=== PATIENT | male | born 1975 | race Caucasian/White ===

== ENCOUNTER 2018-07-10 17:16 | Inpatient (IN) ==
--- NOTE | 2018-07-10 19:23 | Emergency Department Note ---
Entered by Alberto Leroy acting as a scribe for Pancho Howard DO History of Present Illness General Chief complaint: Seizure Stated complaint: SEIZURES, UNSTABLE ON HIS FEET, COORDINATION PROB Time Seen by Provider: 07/10/18 18:10 Source: family (sister) History of Present Illness Onset (ago): week(s) 1 Location: head (global) Pain Consistency: + intermittent Quality: + other (seizures 2-3 times daily) Associated symptoms: + other (falls; difficulty walking) Treatments prior to arrival: other (recent Keppra dosage increase) The patient is a 43 year old male who presents to the Emergency Room with complaints of intermittent seizures for the past week. The patient�s sister reports that the patient was evaluated in the ER three days ago for his symptoms. She reports that the patient�s Keppra dosage was recently increased. She notes that the patient�s seizures occur 2-3 times daily. She reports that they occur immediately with little warning, and the patient often falls, noting that four days ago the patient fell onto his face. She states that the patient has difficulty walking, even long after his seizures have resolved. She states that the patient�s nurse practitioner home assessments called his neurologist Dr. Taveras today, who referred him to the ER for possible admission, noting that either the patient�s Keppra levels are abnormal or the Keppra is not working. She notes that the patient is scheduled for an appointment with Dr. Taveras tomorrow. She states that the patient is also on Lamotrigine. Home Medications Home Medications Medication Instructions Recorded Confirmed Type benzoyl peroxide [Acne Medication] 1 applic TOPICAL BID PRN 07/07/18 07/10/18 History benztropine 1 mg PO QAM 07/07/18 07/10/18 History benztropine 2 mg PO HS 07/07/18 07/10/18 History clindamycin phosphate 1 applic TOPICAL BID PRN 07/07/18 07/10/18 History doxycycline monohydrate 100 mg PO BID 07/07/18 07/10/18 History ketoconazole 1 applic/day TOPICAL DAILY PRN 07/07/18 07/10/18 History lamotrigine 50 mg PO BID 07/07/18 07/10/18 History lamotrigine 200 mg PO BID 07/07/18 07/10/18 History levetiracetam 1,000 mg PO BID 07/07/18 07/10/18 History levetiracetam [Keppra] 500 mg PO BID #30 tab 07/07/18 07/10/18 Rx levothyroxine 50 mcg PO DAILY 07/07/18 07/10/18 History lorazepam 0.5 mg PO BID 07/07/18 07/10/18 History risperidone 3 mg PO BID 07/07/18 07/10/18 History triamcinolone acetonide 1 applic TOPICAL BID 07/07/18 07/10/18 History zonisamide 200 mg PO BID 07/07/18 07/10/18 History acetaminophen [Tylenol Arthritis 650 mg PO Q6 PRN 07/10/18 07/10/18 History Pain] Allergies Allergy/AdvReac Type Severity Reaction Status Date / Time carbamazepine Allergy Unknown Verified 07/10/18 19:23 Past Med/Surg History Medical History Seizures (Chronic) Family History Other No significant family history Social History Feels Safe at Home: Yes Smoking Status: Never smoker Preferred Language: Slovenian Review of Systems See HPI for pertinent positives & negatives. and A total of 10 systems reviewed and were otherwise negative Physical Exam Vital Signs Vital Signs - 24 hr 07/10/18 17:22 07/10/18 18:03 07/10/18 18:05 Temperature 37 C Temperature Source Oral Sepsis Recent Fever Within 48 Hours No Sepsis New/Unexplained Change in Mental Status No Sepsis Action Taken by Nursing No Action Required Pulse Rate 86 Pulse Rate [Left Finger] 85 Respiratory Rate 16 20 Respiratory Effort / Characteristics Non-Labored Spontaneous Respiratory Depth Normal Respiratory Pattern Regular Blood Pressure 112/73 Blood Pressure [Left Arm] 119/73 Blood Pressure Mean 86 Blood Pressure Mean [Left Arm] 88 Pulse Oximetry 99 98 97 Oxygen Delivery Method Room Air Room Air Room Air 07/10/18 19:00 07/10/18 20:30 Temperature Temperature Source Sepsis Recent Fever Within 48 Hours Sepsis New/Unexplained Change in Mental Status Sepsis Action Taken by Nursing Pulse Rate Pulse Rate [Left Finger] 81 89 Respiratory Rate 18 23 Respiratory Effort / Characteristics Respiratory Depth Respiratory Pattern Blood Pressure Blood Pressure [Left Arm] 111/81 122/76 Blood Pressure Mean Blood Pressure Mean [Left Arm] 91 91 Pulse Oximetry 97 99 Oxygen Delivery Method Room Air Room Air CONSTITUTIONAL/VITAL SIGNS: Reviewed / noted above. GENERAL: Non-toxic in appearance. INTEGUMENTARY: Warm, dry, and [place]. HEAD: Normocephalic. EYES: without scleral icterus or trauma. ENT/OROPHARYNX: clear and moist. LYMPHADENOPATHY/NECK: Is supple without lymphadenopathy or meningismus. RESPIRATORY: Lungs clear and equal. CARDIOVASCULAR: Regular rate and rhythm. GI/ABDOMEN: Soft and nontender. No organomegaly or pulsatile mass. No rebound or guarding. Normal bowel sounds. EXTREMITIES: Warm and well perfused. BACK: No CVA tenderness. NEUROLOGICAL: Intact without focal deficits. PSYCHIATRIC: normal affect. MUSCULOSKELETAL: Normally developed with good muscle tone. Course 1815: Past medical records reviewed. The patient was evaluated in room B2, and a complete history and physical examination were performed. 1899: I consulted Dr. Apodaca � [facility] Hospitalist. He states that he will notify Dr. Nava of the patient�s case, who will then reevaluate the patient for hospitalization. Consultations Consultation #1: I consulted Dr. Apodaca � [facility] Hospitalist. He states that he will notify Dr. Nava of the patient�s case, who will then reevaluate the patient for hospitalization. Time: 19:00 Medical Decision Making Differential Diagnosis Differential diagnosis: Etiologies such as infection, hypoglycemia, electrolyte abnormalities, cardiac sources, intracerebral event, trauma, toxicologic, neurologic, as well as others were entertained. Medical Records Attestation: I reviewed the patient's medical records. Home Medications Current Medication List: was personally reviewed by me Laboratory Data Result diagrams: 07/10/18 19:50 Lab Results 07/10/18 Range/Units 19:50 WBC 4.15 L (4.8-10.8) K/uL RBC 4.03 L (4.7-6.1) M/uL Hgb 12.7 L (14.0-18.0) g/dL Hct 38.8 L (42-52) % MCV 96.3 (80-100) fL MCH 31.5 (25-34) pg MCHC 32.7 (32-36) g/dL RDW Std Deviation 51.8 H (36.4-46.3) fL RDW Coeff of Vero 14.6 H (11.5-14.5) % Plt Count 115 L (130-400) K/uL MPV 12.2 H (7.4-10.4) fL Immature Gran % (Auto) 0.0 % Neut % (Auto) 67.5 % Lymph % (Auto) 24.6 % Holt % (Auto) 6.0 % Eos % (Auto) 1.2 % Baso % (Auto) 0.7 % Immature Gran # (Auto) 0.00 (0.00-0.02) K/uL Neut # (Auto) 2.80 (1.4-6.5) K/uL Lymph # (Auto) 1.02 L (1.2-3.4) K/uL Holt # (Auto) 0.25 (0.11-0.59) K/uL Eos # (Auto) 0.05 (0-0.5) K/uL Baso # (Auto) 0.03 (0-0.2) K/uL Platelet Estimate Decreased (Normal) Blood Pressure Blood Pressure Findings: Normal blood pressure Blood Pressure Disposition: did not require urgent referral MDM Narrative This is a 43-year-old male who presents to the ED with a chief complaint of recurrent seizures. The patient was seen on 07/07/18 for the same symptoms. At that time the patient had blood work as well as a CT scan of the brain. The physician at that time spoke with Dr. Taveras, the patient's neurologist and the patient's Keppra was increased to 1500 mg twice a day. The patient has had roughly 2 focal type seizures per day since discharge 3 days ago. The patient, according to the sister occasionally twitches his head and then zones out and sometimes falls. The patient is currently awake, alert and oriented. He is at his baseline. The patient's sister stated that when the nursing facility spoke with Dr. Taveras, the patient was advised to come to the emergency department to be admitted for recurrent/intractable seizures. I spoke with Dr. Eduardo about the patient. He will be seen for observation . Keppra & Lamictal levels are pending from the prior visit. Impression & Plan Seizures Discharge Plan Visit Data Chief Complaint: Seizure Stated Complaint: SEIZURES, UNSTABLE ON HIS FEET, COORDINATION PROB ED Provider: Pancho Howard Discharge Problem: Seizures Patient Disposition: Being Evaluated by Hospitalist The scribe's documentation has been prepared under my direction and personally reviewed by me in its entirety. I confirm that the note above accurately reflects all work, treatment, procedures, and medical decision making performed by me.
[2018-07-10 20:15] LABS: Hematocrit (blood only) 38.8 % (42-52); Hemoglobin 12.7 g/dL (14.0-18.0); Mean Corpuscular Hgb Conc 32.7 g/dL (32-36); Mean Corpuscular Volume 96.3 fL (80-100); Mean Platelet Volume 12.2 fL (7.4-10.4); Platelet Count 115 K/uL (130-400); RDW Coefficient of Variation 14.6 % (11.5-14.5); RDW Standard Deviation 51.8 fL (36.4-46.3); Red Blood Count 4.03 M/uL (4.7-6.1); White Blood Count 4.15 K/uL (4.8-10.8)
[2018-07-10 20:40] LABS: Basophils # (auto) 0.03 K/uL (0-0.2); Basophils % (auto) 0.7 %; Eosinophils # (auto) 0.05 K/uL (0-0.5); Eosinophils % (auto) 1.2 %; Lymphocytes # (auto) 1.02 K/uL (1.2-3.4); Lymphocytes % (auto) 24.6 %; Monocytes # (auto) 0.25 K/uL (0.11-0.59); Neutrophils % (auto) 67.5 %; Platelet Estimate Decreased (Normal)
--- NOTE | 2018-07-10 20:48 | History & Physical Report ---
Date of Service July 10, 2018 Assessment & Plan (1) Seizure disorder: Seizure disorder with recurrent seizures/anxiety and depression-- Admits to medical telemetry bed. Seizure precautions. Continue current dosings of benztropine, lamotrigine, levetiracetam, lorazepam, risperidone and zonisamide. Order an EEG. CT of head negative on 07/07. Unable to perform MRI due to presence of pacer/AICD. Consult neurology Dr. 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 On no rate controlling medications at this time. Present on Admission?: Yes (5) Acne: Continue benzoyl peroxide topically as needed, clindamycin phosphate topically as needed topically, ketoconazole topically as needed and doxycycline 100 milligrams p.o. twice daily. Present on Admission?: Yes (6) Hypothyroidism (acquired): Continue levothyroxine sodium 50 mcg p.o. daily Present on Admission?: Yes (7) Anxiety: As above. Present on Admission?: Yes (8) AICD (automatic cardioverter/defibrillator) present: As above Present on Admission?: Yes (9) Pacemaker: As above Present on Admission?: Yes History of Present Illness Chief Complaint: The patient is referred to the emergency department by his neurologist Dr. Kelvin Taveras for recurrent seizures Primary Care Provider: Tere Hyatt The patient is a 43-year-old male who presented to the emergency department on July 07 with increased frequency of seizures. His neurologist Dr. Taveras was called by Dr. Doll from the ED, change in medications were made, and patient was discharged. His sister who is with him benjamin, reports that he has had persistent seizures since that time, they called Dr. Taveras's office today , and Dr. Taveras advised that the patient comes emergency department to be admitted. The patient is reportedly taking medications as directed. He has not had any recent travels or sick exposures. He has no other complaints. Allergies Allergy/AdvReac Type Severity Reaction Status Date / Time carbamazepine Allergy Unknown Verified 07/10/18 19:23 Home Medications Home Medications Medication Instructions Recorded Confirmed Type benzoyl peroxide [Acne Medication] 1 applic TOPICAL BID PRN 07/07/18 07/10/18 History benztropine 1 mg PO QAM 07/07/18 07/10/18 History benztropine 2 mg PO HS 07/07/18 07/10/18 History clindamycin phosphate 1 applic TOPICAL BID PRN 07/07/18 07/10/18 History doxycycline monohydrate 100 mg PO BID 07/07/18 07/10/18 History ketoconazole 1 applic/day TOPICAL DAILY PRN 07/07/18 07/10/18 History lamotrigine 50 mg PO BID 07/07/18 07/10/18 History lamotrigine 200 mg PO BID 07/07/18 07/10/18 History levetiracetam 1,000 mg PO BID 07/07/18 07/10/18 History levetiracetam [Keppra] 500 mg PO BID #30 tab 07/07/18 07/10/18 Rx levothyroxine 50 mcg PO DAILY 07/07/18 07/10/18 History lorazepam 0.5 mg PO BID 07/07/18 07/10/18 History risperidone 3 mg PO BID 07/07/18 07/10/18 History triamcinolone acetonide 1 applic TOPICAL BID 07/07/18 07/10/18 History zonisamide 200 mg PO BID 07/07/18 07/10/18 History acetaminophen [Tylenol Arthritis 650 mg PO Q6 PRN 07/10/18 07/10/18 History Pain] Past Med/Surg History Medical History Seizures (Chronic) Family History Other No significant family history Social History Feels Safe at Home: Yes Smoking Status: Never smoker Preferred Language: [place]auan Review of Systems The patient denies chest pain, palpitations, shortness of breath, dyspnea on exertion, cough, lower extremity swelling, sore throat, fevers, chills, sweats, weight change, fatigue, nausea, vomiting, diarrhea , constipation, abdominal pain, pelvic pain, blood in urine or stool, dysuria, urinary frequency or urgency, lightheadedness , dizziness, headache, loss of consciousness, imbalance, focal or generalized weakness, numbness or tingling in arms or legs, generalized arthralgias or myalgias, back or neck pain, or night sweats. The review of systems is otherwise negative other than for that already noted above, and at least 10 systems have been reviewed. Physical Exam 2 Vital Signs (Past 24 Hours): Last Vital Signs Temp 37 C 07/10/18 17:22 Pulse 81 07/10/18 19:00 Resp 18 07/10/18 19:00 BP 111/81 07/10/18 19:00 Pulse Ox 97 07/10/18 19:00 Physical Exam: The patient is awake, alert and oriented �3, well developed and well nourished, normocephalic and atraumatic, lying in bed and in no acute distress. HEENT--PERRL, EOMI, mucous membranes and oropharynx normal. Neck--supple. No JVD. No bruits. Thyroid normal, trachea midline, no adenopathy. Heart--normal S1 and S2. No murmurs, rubs or gallops. Lungs--clear bilaterally, no respiratory distress, no accessory muscle use. Abdomen--normal bowel sounds and soft. Nontender. Nondistended, no hernias or masses, no organomegaly. Extremities--no cyanosis or clubbing. No edema. There are good distal pulses b/ l. Dermatologic--numerous linear surface abrasions from scratching on arms, legs and face Neurologic--cranial nerves II through XII grossly intact. Rheumatologic--normal range of motion. Psychiatric--normal affect. Results & Data Laboratory Results Laboratory Results WBC 4.15 K/uL (4.8-10.8) L 07/10/18 19:50 RBC 4.03 M/uL (4.7-6.1) L 07/10/18 19:50 Hgb 12.7 g/dL (14.0-18.0) L 07/10/18 19:50 Hct 38.8 % (42-52) L 07/10/18 19:50 MCV 96.3 fL (80-100) 07/10/18 19:50 MCH 31.5 pg (25-34) 07/10/18 19:50 MCHC 32.7 g/dL (32-36) 07/10/18 19:50 RDW Std Deviation 51.8 fL (36.4-46.3) H 07/10/18 19:50 RDW Coeff of Vero 14.6 % (11.5-14.5) H 07/10/18 19:50 Plt Count 115 K/uL (130-400) L 07/10/18 19:50 MPV 12.2 fL (7.4-10.4) H 07/10/18 19:50 Medications Administered Home Medications Medication Instructions Recorded Confirmed benzoyl peroxide [Acne Medication] 1 applic TOPICAL BID PRN 07/07/18 07/10/18 benztropine 1 mg PO QAM 07/07/18 07/10/18 benztropine 2 mg PO HS 07/07/18 07/10/18 clindamycin phosphate 1 applic TOPICAL BID PRN 07/07/18 07/10/18 doxycycline monohydrate 100 mg PO BID 07/07/18 07/10/18 ketoconazole 1 applic/day TOPICAL DAILY PRN 07/07/18 07/10/18 lamotrigine 50 mg PO BID 07/07/18 07/10/18 lamotrigine 200 mg PO BID 07/07/18 07/10/18 levetiracetam 1,000 mg PO BID 07/07/18 07/10/18 levothyroxine 50 mcg PO DAILY 07/07/18 07/10/18 lorazepam 0.5 mg PO BID 07/07/18 07/10/18 risperidone 3 mg PO BID 07/07/18 07/10/18 triamcinolone acetonide 1 applic TOPICAL BID 07/07/18 07/10/18 zonisamide 200 mg PO BID 07/07/18 07/10/18 acetaminophen [Tylenol Arthritis 650 mg PO Q6 PRN 07/10/18 07/10/18 Pain] Previous Rx's Medication Instructions Recorded levetiracetam [Keppra] 500 mg PO BID #30 tab 07/07/18 Code Status & VTE Plan Code Status Full code VTE Prophylaxis Plan VTE Prophylaxis will be ordered: Yes _ (1) CHI (closed head injury) Encounter type: initial encounter Qualified Code(s): S09.90XA - Unspecified injury of head, initial encounter
[2018-07-10] MEDS ORDERED: NON-FORMULARY MEDICATION (Acetaminophen [Tylenol Arthritis Pain] 650 MG) PO PRN (21:39)
[2018-07-10] MEDS ORDERED: ALUMINUM/MAGNESIUM SUSP 30 ML UDC PO PRN (21:39)
[2018-07-10] MEDS ORDERED: ACETAMINOPHEN 325 MG TAB PO PRN (21:39)
[2018-07-10] MEDS ORDERED: levETIRAcetam 500 MG TAB PO SCH (21:39)
[2018-07-10] MEDS ORDERED: MAGNESIUM HYDROXIDE SUSP 30 ML UDC PO PRN (21:39)
[2018-07-10] MEDS ORDERED: ONDANSETRON INJ 2 MG/ML 2 ML VIAL IV PRN (21:39)
[2018-07-10] MEDS: LORazepam 0.5 MG TAB PO SCH (22:31)
[2018-07-10] MEDS: lamoTRIgine 25 MG TAB PO SCH (22:32)
[2018-07-10] MEDS: lamoTRIgine 100 MG TAB PO SCH (22:35)
[2018-07-10] MEDS: BENZTROPINE MESYLATE 1 MG TAB PO SCH (22:36)
[2018-07-10] MEDS: DOXYCYCLINE HYCLATE 100 MG CAP PO SCH (22:36)
[2018-07-10] MEDS: risperiDONE 3 MG TABLET PO SCH (22:36)
[2018-07-10] MEDS: levETIRAcetam 500 MG TAB PO SCH ×2 (22:37)
[2018-07-10] MEDS: TRIAMCINOLONE ACET 0.1% CR 15 GM TUBE TOP SCH (22:48)
[2018-07-11] MEDS: LEVOTHYROXINE SODIUM 50 MCG TABLET PO SCH (06:09)
--- NOTE | 2018-07-11 07:48 | Hospitalist Progress Note ---
Date of Service July 11, 2018 Assessment & Plan (1) Seizure disorder: Seizure disorder with recurrent seizures/anxiety and depression-- Continue current dosings of benztropine, lamotrigine, levetiracetam, lorazepam, risperidone and zonisamide. Pending results of EEG and Dr. Kim to weigh in on alterations of the anti- epileptic medication. CT of head negative on 07/07. Unable to perform MRI due to presence of pacer/AICD. Given the patient's cardiac history he will be continued to be monitored and will interrogate his device to look for alternative causes of his lapses of consciousness (2) Recurrent seizures: As above (3) CHI (closed head injury): Noted in history, association with seizures (4) Tetralogy of Fallot: Tetralogy of Fallot/surgery as an /pacemaker and AICD present with paced rhythm-- Admit to monitored bed to monitor for arrhythmia as potential contributing factor to seizure activity. On no rate controlling medications at this time. (5) Acne: Continue benzoyl peroxide topically as needed, clindamycin phosphate topically as needed topically, ketoconazole topically as needed and doxycycline 100 milligrams p.o. twice daily. (6) Hypothyroidism (acquired): Continue levothyroxine sodium 50 mcg p.o. daily (7) Anxiety: As above. (8) AICD (automatic cardioverter/defibrillator) present: As above (9) Pacemaker: As above Subjective Patient is fairly quiet he can offer some insight his sisters at the bedside which provides much more inside. The patient had increased falls at the place where he lives sister is concerned he is exceeding her ability to care for him. He does have some areas of unresponsiveness and is unclear whether they are seizures or not. The patient's sister believes he went through a similar episode a few months ago with increased his Keppra and he had a period of time where he was doing better. Patient is going to be seen by neurology currently he is on the heart monitor he does have a AICD implant and has had no recent arrhythmias Review of Systems Unobtainable due to cognitive status Physical Exam 2 Vital Signs (Past 24 Hours): Last Vital Signs Temp 36.5 C 07/11/18 07:42 Pulse 94 H 07/11/18 07:42 Resp 18 07/11/18 07:42 BP 108/71 07/11/18 07:42 Pulse Ox 97 07/11/18 07:42 The patient appeared thin and chronically ill Vital signs as documented. Head exam is unremarkable. His ecchymosis around his eyes Neck is without jugular venous distension, thyromegaly, or lymphademopathy Lungs are clear to auscultation and percussion. Cardiac exam reveals Rhythm is regular. First and second heart sounds normal. Abdominal exam reveals normal bowel sounds, no masses, no organomegaly Extremities are nonedematous and both pedal pulses are present Neurologic exam is A&Ox2, no focal deficits, strength is equal bilateral but globally diminished Psychologically seems to have issues with mental processing and speech Skin is warm Dry without bruises or lesions _ (1) CHI (closed head injury) Encounter type: initial encounter Qualified Code(s): S09.90XA - Unspecified injury of head, initial encounter
[2018-07-11] MEDS: LORazepam 0.5 MG TAB PO SCH ×2 (08:06→20:26)
[2018-07-11] MEDS: DOXYCYCLINE HYCLATE 100 MG CAP PO SCH ×2 (08:08→19:51)
[2018-07-11] MEDS: BENZTROPINE MESYLATE 1 MG TAB PO SCH ×2 (08:09→19:51)
[2018-07-11] MEDS: risperiDONE 3 MG TABLET PO SCH ×2 (08:09→19:52)
[2018-07-11] MEDS: lamoTRIgine 100 MG TAB PO SCH ×2 (08:10→19:52)
[2018-07-11] MEDS: levETIRAcetam 500 MG TAB PO SCH ×3 (08:11→19:52)
[2018-07-11] MEDS: lamoTRIgine 25 MG TAB PO SCH ×2 (08:11→20:26)
[2018-07-11] MEDS: TRIAMCINOLONE ACET 0.1% CR 15 GM TUBE TOP SCH ×2 (10:05→20:29)
--- NOTE | 2018-07-11 10:54 | Neurology Consultation ---
Date of Consultation July 11, 2018 Assessment & Plan (1) Seizures: This is a 43-year-old male with intellectual disability and epilepsy. Seizure description is likely of focal onset seizures with secondary generalization and impaired mentation. Description of head shaking to the left sounds consistent with epileptic seizures. longterm and sister also calling spells of drop attacks and falls seizures but have not clearly been established as epileptic seizures. Recommendations: I have ordered an EEG for further evaluation Patient's sister reports that he is not safe in his detention due to frequent falls and ambulatory dysfunction. She would like him evaluated for intermediate placement until his seizures are better controlled. It appears that his ambulatory dysfunction and poor balance have been an ongoing problem and do tend to fluctuate. Recommend physical therapy and occupational therapy for ambulatory dysfunction and for evaluation of rehab placement versus intermediate placement Recommend checking orthostatic blood pressure due to reports of falling and possible syncope. If his cardiac pacer has not been interrogated, this should be done to rule out arrhythmias causing syncope and falls. I have sent off for ammonia level and UA to look for other secondary causes for ambulatory dysfunction I have sent off for Lamictal and Zonegran levels for future medication management and planning. In the future may be able to increase Lamictal it is it is not clear that the patient had true side effects to medication in the past. Patient does seem to have side effects with higher dose of Lamictal, or if ambulatory dysfunction continues to be a problem, could consider changing Lamictal to extended release to reduce potential dizziness side effects. Please call/page me if there is any questions or concerns. Do not think the patient necessarily needs to stay in the acute hospital setting for management of his epilepsy and seizure. Patient can follow-up in neurology clinic within the next month. History of Present Illness Reason for Consultation: Consult for recurrent breakthrough seizures Attending Physician: Vahid New MD History of Present Illness This is a 43-year-old male who presents with recurrent breakthrough seizures. Has been occurring for the last month. longterm documenting 2-3 seizures every day. Sister reports that when this happened previously the end of summer , increasing Keppra seemed to stop it. She reports that it seems like his balance and gait gets worse after seizures and does not feel that it is related to medication. She denies any side effects to going up on Keppra to 1500 mg twice a day. Patient's sister did see what sounded like a convincing seizure Monday in which his head started shaking to the left. It is unclear to me whether all his documented seizures are actually epileptic seizures as a lot of them appear to be drug attacks or unwitnessed falls. There was concerns when he was evaluated in clinic over the summer that his drop attacks could be orthostatic or cardiac. Does not sound like this was ever truly evaluated. At that time in the summer that he was noted to have some low blood pressures. Extensively reviewed patient's outpatient chart. Patient has been followed by Dr. Taveras for approximately 10 years. Previously patient has been tried on Tegretol, Lamictal, Keppra, and most recently zonogram. It is unclear what medication may have been more helpful. In the past the patient has been on a maximum dose of Lamictal 300 mg twice a day and up to 450 mg twice a day when also on Tegretol. It appears that the patient's Lamictal was decreased in 2012 from 300 mg twice a day to 200 mg twice a day for concerns of possible side effects although this appeared to be related to his balance and gait dysfunction which seems to be an ongoing fluctuating situation. So it is unclear whether the patient had true side effects to Lamictal or not. Max dose of Keppra has been 1500 mg twice a day. There was an attempt to decrease and wean Keppra back in 2012 but it appears that he had breakthrough seizures and so Keppra has been increased again. Zonisamide has been the most recent addition to the patient's antiepileptic medications and it is unclear how helpful this medication has been although there were many notes that the patient appeared to be stable on triple therapy Keppra, Lamictal, and zonisamide. Overall it is unclear why the patient has had increased seizures recently, and it is also unclear whether all of his reported seizures are epileptic or not. Some of the spell descriptions of his face and drooping with slurred speech and sudden falls or drop attacks do not seem to be clearly epileptic at this time or have been established is epileptic in the past. Labs this admission were reviewed. Unremarkable CBC, complete metabolic panel, and TSH. Lamictal level in April was 11.2 and zonisamide level in February was 43. CT of the head reported images were reviewed by myself and unremarkable. Allergies Allergy/AdvReac Type Severity Reaction Status Date / Time carbamazepine Allergy Unknown Verified 07/10/18 19:23 Home Medications Home Medications Medication Instructions Recorded Confirmed Type benzoyl peroxide [Acne Medication] 1 applic TOPICAL BID PRN 07/07/18 07/10/18 History benztropine 1 mg PO QAM 07/07/18 07/10/18 History benztropine 2 mg PO HS 07/07/18 07/10/18 History clindamycin phosphate 1 applic TOPICAL BID PRN 07/07/18 07/10/18 History doxycycline monohydrate 100 mg PO BID 07/07/18 07/10/18 History ketoconazole 1 applic/day TOPICAL DAILY PRN 07/07/18 07/10/18 History lamotrigine 50 mg PO BID 07/07/18 07/10/18 History lamotrigine 200 mg PO BID 07/07/18 07/10/18 History levetiracetam 1,000 mg PO BID 07/07/18 07/10/18 History levetiracetam [Keppra] 500 mg PO BID #30 tab 07/07/18 07/10/18 Rx levothyroxine 50 mcg PO DAILY 07/07/18 07/10/18 History lorazepam 0.5 mg PO BID 07/07/18 07/10/18 History risperidone 3 mg PO BID 07/07/18 07/10/18 History triamcinolone acetonide 1 applic TOPICAL BID 07/07/18 07/10/18 History zonisamide 200 mg PO BID 07/07/18 07/10/18 History acetaminophen [Tylenol Arthritis 650 mg PO Q6 PRN 07/10/18 07/10/18 History Pain] Patient History Medical History Seizures (Chronic) Family History Other No significant family history Social History Current Living Situation: Other Current Living Situation Comment: Lives in detention. [facility]. 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 Bruising on his face and head. Heart: Regular rate and rhythm Extremities: No gross deformities or rashes noted Neurological examination: Mental status: Patient is a alert and oriented to person. Cooperative with the examination but often does not understand how to follow commands correctly. Does have intellectual disability and cognitive deficits. Most of the history is taken from his sister. Patient is able to give his own review of systems. Poor fund of knowledge. Attention and concentration is good. Speech is fluent with some dysarthria Cranial nerves: Visual núñez intact to confrontation. Funduscopic examination was difficult to visualize. Pupils equally round and reactive to light. Extraocular muscles intact without nystagmus. No facial asymmetry noted. Facial sensation intact. Tongue midline. Good palatal elevation. Good shoulder shrug bilaterally. Hearing grossly intact voice. Strength: 5/5 both proximal and distal in all extremities .Tone is normal. Some bradykinesia Sensation: Grossly intact to light touch in all extremities Deep tendon reflexes: +2 in bilateral biceps and patellar. Toes are downgoing to plantar stimulation bilaterally Coordination: Patient has some dysmetria with finger to nose Station within the bed is normal.
--- NOTE | 2018-07-11 14:25 | Procedure Note ---
EEG Procedure Note Date of Service July 11, 2018 Start / End Times Start Time: 10:56 AM End Time: 11:15 AM Referring Physician Sherly Kim History This is a 43-year-old male with known epilepsy and reported multiple breakthrough seizures that may or may not be epileptic. EEG for further evaluation of epilepsy. Home Medication List Home Medications Medication Instructions Recorded Confirmed Type benzoyl peroxide [Acne Medication] 1 applic TOPICAL BID PRN 07/07/18 07/10/18 History benztropine 1 mg PO QAM 07/07/18 07/10/18 History benztropine 2 mg PO HS 07/07/18 07/10/18 History clindamycin phosphate 1 applic TOPICAL BID PRN 07/07/18 07/10/18 History doxycycline monohydrate 100 mg PO BID 07/07/18 07/10/18 History ketoconazole 1 applic/day TOPICAL DAILY PRN 07/07/18 07/10/18 History lamotrigine 50 mg PO BID 07/07/18 07/10/18 History lamotrigine 200 mg PO BID 07/07/18 07/10/18 History levetiracetam 1,000 mg PO BID 07/07/18 07/10/18 History levetiracetam [Keppra] 500 mg PO BID #30 tab 07/07/18 07/10/18 Rx levothyroxine 50 mcg PO DAILY 07/07/18 07/10/18 History lorazepam 0.5 mg PO BID 07/07/18 07/10/18 History risperidone 3 mg PO BID 07/07/18 07/10/18 History triamcinolone acetonide 1 applic TOPICAL BID 07/07/18 07/10/18 History zonisamide 200 mg PO BID 07/07/18 07/10/18 History acetaminophen [Tylenol Arthritis 650 mg PO Q6 PRN 07/10/18 07/10/18 History Pain] Inpatient Medication List Benztropine Mesylate (Cogentin) 1 mg PO QAM [facility] Stop: 08/10/18 08:59 Last Admin: 07/11/18 08:09 Dose: 1 mg Benztropine Mesylate (Cogentin) 2 mg PO HS [facility] Stop: 08/09/18 21:38 Last Admin: 07/10/18 22:36 Dose: 2 mg Doxycycline Hyclate (Vibramycin) 100 mg PO BID [facility] Stop: 07/20/18 21:38 Last Admin: 07/11/18 08:08 Dose: 100 mg Admin: 07/10/18 22:36 Dose: 100 mg Lamotrigine (Lamictal) 50 mg PO BID [facility] Stop: 08/09/18 21:38 Last Admin: 07/11/18 08:11 Dose: 50 mg Admin: 07/10/18 22:32 Dose: 50 mg Lamotrigine (Lamictal) 200 mg PO BID [facility] Stop: 08/09/18 21:38 Last Admin: 07/11/18 08:10 Dose: 200 mg Admin: 07/10/18 22:35 Dose: 200 mg Levothyroxine Sodium (Synthroid) 50 mcg PO DAILYBB [facility] Stop: 08/10/18 06:29 Last Admin: 07/11/18 06:09 Dose: 50 mcg Lorazepam (Ativan) 0.5 mg PO BID [facility] Stop: 08/09/18 21:38 Last Admin: 07/11/18 08:06 Dose: 0.5 mg Admin: 07/10/18 22:31 Dose: 0.5 mg Miscellaneous (Order Awaiting Action) 1 ea N/A QS [facility] Stop: 08/10/18 00:00 Last Admin: 07/11/18 09:35 Dose: Not Given Admin: 07/10/18 23:40 Dose: Not Given Miscellaneous (Order Awaiting Action) 1 ea N/A QS [facility] Stop: 08/10/18 00:00 Last Admin: 07/11/18 09:35 Dose: Not Given Admin: 07/10/18 23:40 Dose: Not Given Miscellaneous (Order Awaiting Action) 1 ea N/A QS [facility] Stop: 08/10/18 00:00 Last Admin: 07/11/18 09:35 Dose: Not Given Admin: 07/10/18 23:40 Dose: Not Given Risperidone (Risperdal) 3 mg PO BID [facility] Stop: 08/09/18 21:38 Last Admin: 07/11/18 08:09 Dose: 3 mg Admin: 07/10/18 22:36 Dose: 3 mg Triamcinolone Acetonide (Kenalog 0.1%) 1 appln TOP BID [facility] Stop: 08/09/18 21:38 Last Admin: 07/11/18 10:05 Dose: 1 appln Admin: 07/10/18 22:48 Dose: Not Given Discontinued Medications Levetiracetam (Keppra) 1,000 mg PO BID [facility] Stop: 08/09/18 21:38 Last Admin: 07/11/18 08:11 Dose: 1,000 mg Admin: 07/10/18 22:37 Dose: 1,000 mg Levetiracetam (Keppra) 500 mg PO BID [facility] Stop: 08/09/18 21:38 Last Admin: 07/11/18 08:12 Dose: 500 mg Admin: 07/10/18 22:37 Dose: 500 mg Miscellaneous (Order Awaiting Action) 1 ea N/A QS [facility] Stop: 08/10/18 00:00 Last Admin: 07/11/18 09:36 Dose: Not Given Admin: 07/10/18 23:41 Dose: Not Given Description This is a 21 electrode EEG with a single channel dedicated to limited EKG. The electrodes were placed in accordance with the International 10-20 system. At the start of the recording the patient was in an awake state. Background was poorly organized with a poorly formed anterior posterior gradient. Background was composed of predominantly 6-7 Hz theta frequencies with intermixed alpha and beta frequencies. There was intermittent mild slowing over the right hemisphere. Hyperventilation was not done. Intermittent photic stimulation at various frequencies produced no abnormalities. Drowsiness was indicated by slowing of the background rhythm and loss of muscle artifact. There was no sleep transients. Interpretation This is an abnormal routine EEG secondary to: 1) mild intermittent right hemispheric slowing 2) mild background disorganization and slowing There was no electrographic seizures or epileptiform discharges. Clinical Correlation This EEG indicates: 1) cerebral dysfunction over the right hemisphere. While focal slowing is nonspecific, could be an indication of a recent seizure or predisposition toward seizures in that area. 2) mild encephalopathy of nonspecific etiology. This would be consistent with the patient's known history of intellectual disability.
[2018-07-11] MEDS: ZONISAMIDE 100MG PO SCH ×2 (14:37→19:58)
[2018-07-11 15:11] LABS: Appearance Urine Clear (Clear); Bilirubin Urine Negative (Negative); Blood Urine Negative (Negative); Color Urine Yellow; Glucose Urine UA Negative (Negative); Ketones Urine Negative (Negative); Leukocyte Esterase Urine Negative (Negative); Nitrite Urine Negative (Negative); Protein Urine Negative (Negative); Specific Gravity Urine 1.011 (1.000-1.030); Urobilinogen Urine Negative (Negative)
[2018-07-12] MEDS: levETIRAcetam 500 MG TAB PO SCH ×2 (08:39→19:56)
[2018-07-12] MEDS: LORazepam 0.5 MG TAB PO SCH ×2 (08:39→19:54)
[2018-07-12] MEDS: TRIAMCINOLONE ACET 0.1% CR 15 GM TUBE TOP SCH ×2 (08:41→19:55)
[2018-07-12] MEDS: DOXYCYCLINE HYCLATE 100 MG CAP PO SCH ×2 (08:41→19:55)
[2018-07-12] MEDS: LEVOTHYROXINE SODIUM 50 MCG TABLET PO SCH (08:42)
[2018-07-12] MEDS: BENZTROPINE MESYLATE 1 MG TAB PO SCH ×2 (08:42→19:57)
[2018-07-12] MEDS: lamoTRIgine 100 MG TAB PO SCH ×2 (08:43→19:54)
[2018-07-12] MEDS: risperiDONE 3 MG TABLET PO SCH ×2 (08:44→19:56)
[2018-07-12] MEDS: ZONISAMIDE 100MG PO SCH ×2 (08:44→19:54)
[2018-07-12] MEDS: lamoTRIgine 25 MG TAB PO SCH ×2 (10:19→19:55)
--- NOTE | 2018-07-12 11:02 | Hospitalist Progress Note ---
Date of Service July 12, 2018 Assessment & Plan (1) Seizure disorder: Seizure disorder with recurrent seizures/anxiety and depression-- Continue benztropine, lamotrigine, levetiracetam, lorazepam, EEG without epileptiform activity and Dr. Kim has sent out antiepileptic levels, increased keppra CT of head negative on 07/07. Unable to perform MRI due to presence of pacer/AICD. (2) Recurrent seizures: As above (3) CHI (closed head injury): Noted in history, association with seizures (4) Tetralogy of Fallot: Tetralogy of Fallot/surgery as an infant/pacemaker and AICD present with paced rhythm-- does not have issues of tachyarrythmia or congestive failure (5) Acne: Is in good clinical control with benzoyl peroxide, clindamycin phosphate topically, ketoconazole topically and doxycycline 100 milligrams p.o. twice daily. (6) Hypothyroidism (acquired): remains stable on levothyroxine sodium 50 mcg p.o. daily (7) Anxiety: risperidone and zonisamide. for control of behaviors (8) AICD (automatic cardioverter/defibrillator) present: interrogated and found to be functioning appropriately and with normal parameters (9) Pacemaker: As above Subjective Patient is awake alert has some 1 word answers talks and some nonsensical sentences his sisters at the bedside and updated she is supportive of him going to a more supportive environment with nursing oversight will begin the process for placement Evaluation of his pacemaker defibrillator is showing it to be functioning well there is no signs or symptoms of having an arrhythmia to correlate with the syncopal events Review of Systems ROS: Patient is weak tired and thin No double vision blurry vision No problems with speech or swallowing No palpitations, chest pain or pressure No Wheezing or breathing issues No abdominal pain nausea vomiting diarrhea changes in appetite or weight No burning urine urine frequency or changes in color No focal joint pain or muscle pain No focused back pain or numbness or loss of strength Physical Exam 2 Vital Signs (Past 24 Hours): Last Vital Signs Temp 36.9 C 07/12/18 07:30 Pulse 78 07/12/18 07:30 Resp 20 07/12/18 07:30 BP 102/66 07/12/18 07:30 Pulse Ox 95 07/12/18 07:30 The patient appeared chronically ill and thin Vital signs as documented. Head exam is he has ecchymosis about his face from recent falling. Bony structures are normocephalic Neck is without jugular venous distension, thyromegaly, or lymphademopathy Lungs are clear to auscultation and percussion. Cardiac exam reveals Rhythm is regular. First and second heart sounds normal. Abdominal exam reveals normal bowel sounds, no masses, no organomegaly Extremities are nonedematous and both pedal pulses are present Neurologic exam is A&Ox2, no focal deficits, strength is equal bilateral _ (1) CHI (closed head injury) Encounter type: initial encounter Qualified Code(s): S09.90XA - Unspecified injury of head, initial encounter
[2018-07-13] MEDS: LEVOTHYROXINE SODIUM 50 MCG TABLET PO SCH (06:42)
[2018-07-13] MEDS: LORazepam 0.5 MG TAB PO SCH ×2 (08:10→20:56)
[2018-07-13] MEDS: lamoTRIgine 25 MG TAB PO SCH ×2 (08:12→20:57)
[2018-07-13] MEDS: lamoTRIgine 100 MG TAB PO SCH ×2 (08:13→20:57)
[2018-07-13] MEDS: levETIRAcetam 500 MG TAB PO SCH ×2 (08:14→20:56)
[2018-07-13] MEDS: BENZTROPINE MESYLATE 1 MG TAB PO SCH ×2 (08:14→20:56)
[2018-07-13] MEDS: risperiDONE 3 MG TABLET PO SCH ×2 (08:19→20:57)
[2018-07-13] MEDS: DOXYCYCLINE HYCLATE 100 MG CAP PO SCH ×2 (08:19→20:57)
[2018-07-13] MEDS: ZONISAMIDE 100MG PO SCH ×2 (08:20→20:58)
[2018-07-13] MEDS: TRIAMCINOLONE ACET 0.1% CR 15 GM TUBE TOP SCH ×2 (08:21→20:58)
--- NOTE | 2018-07-13 13:40 | Hospitalist Progress Note ---
Date of Service July 13, 2018 Assessment & Plan (1) Seizure disorder: Seizure disorder with recurrent seizures/anxiety and depression-- Continue benztropine, lamotrigine, levetiracetam, lorazepam, EEG without epileptiform activity and Dr. Kim has sent out antiepileptic levels, increased keppra no further seizures are noted CT of head negative on 07/07. Unable to perform MRI due to presence of pacer/AICD. (2) Recurrent seizures: (3) CHI (closed head injury): Noted in history, association with seizures (4) Tetralogy of Fallot: Tetralogy of Fallot/surgery as an infant/pacemaker and AICD present with paced rhythm-- Continues to not have issues of tachyarrythmia or congestive failure (5) Acne: Is in good clinical control with benzoyl peroxide, clindamycin phosphate topically, ketoconazole topically and doxycycline 100 milligrams p.o. twice daily. (6) Hypothyroidism (acquired): levothyroxine sodium 50 mcg p.o. daily continues (7) Anxiety: risperidone and zonisamide. Has been having good control of his behavior outbursts (8) AICD (automatic cardioverter/defibrillator) present: interrogated and found to be functioning appropriately and with normal parameters (9) Pacemaker: Subjective Patient is about the same were waiting for placement issues with him he said no further seizure-like activities family is at the bedside Review of Systems ROS: well nourished well developed. No double vision blurry vision No problems with speech or swallowing No palpitations, chest pain or pressure No Wheezing or breathing issues No abdominal pain nausea vomiting diarrhea changes in appetite or weight No burning urine urine frequency or changes in color No focal joint pain or muscle pain No skin rashes or oral lesions Physical Exam 2 Vital Signs (Past 24 Hours): Last Vital Signs Temp 36.5 C 07/13/18 07:17 Pulse 93 H 07/13/18 07:17 Resp 16 07/13/18 07:17 BP 102/62 07/13/18 07:17 Pulse Ox 96 07/13/18 07:17 The patient appeared thin and chronically ill Vital signs as documented. Head exam is unremarkable healing facial ecchymosis from recent falls Neck is without jugular venous distension, thyromegaly, or lymphademopathy Lungs are clear to auscultation decreased excursion to the effort Cardiac exam reveals Rhythm is regular. First and second heart sounds normal. Abdominal exam reveals normal bowel sounds, no masses, no organomegaly Extremities are nonedematous and both pedal pulses are present Neurologic exam is A&Ox3 he has of impaired mental total ability however, no focal deficits, strength is equal bilateral _ (1) CHI (closed head injury) Encounter type: initial encounter Qualified Code(s): S09.90XA - Unspecified injury of head, initial encounter
[2018-07-14] MEDS: LEVOTHYROXINE SODIUM 50 MCG TABLET PO SCH (06:29)
[2018-07-14] MEDS: levETIRAcetam 500 MG TAB PO SCH ×2 (08:12→21:18)
[2018-07-14] MEDS: lamoTRIgine 25 MG TAB PO SCH ×2 (08:12→21:19)
[2018-07-14] MEDS: BENZTROPINE MESYLATE 1 MG TAB PO SCH ×2 (08:12→21:16)
[2018-07-14] MEDS: risperiDONE 3 MG TABLET PO SCH ×2 (08:12→21:18)
[2018-07-14] MEDS: lamoTRIgine 100 MG TAB PO SCH ×2 (08:12→21:15)
[2018-07-14] MEDS: ZONISAMIDE 100MG PO SCH ×2 (08:13→21:20)
[2018-07-14] MEDS: TRIAMCINOLONE ACET 0.1% CR 15 GM TUBE TOP SCH ×2 (08:13→21:19)
[2018-07-14] MEDS: DOXYCYCLINE HYCLATE 100 MG CAP PO SCH ×2 (08:13→21:17)
[2018-07-14] MEDS: LORazepam 0.5 MG TAB PO SCH ×2 (08:15→21:14)
--- NOTE | 2018-07-14 12:14 | Hospitalist Progress Note ---
Date of Service July 14, 2018 Assessment & Plan (1) Seizure disorder: Seizure disorder with recurrent seizures/anxiety and depression-- Continue benztropine, lamotrigine, levetiracetam, lorazepam, EEG without epileptiform activity and Dr. Kim has sent out antiepileptic levels, increased keppra no further seizures are noted CT of head negative on 07/07. Unable to perform MRI due to presence of pacer/AICD. (2) Recurrent seizures: As above (3) CHI (closed head injury): Noted in history, association with seizures (4) Tetralogy of Fallot: Tetralogy of Fallot/surgery as an /pacemaker and AICD present with paced rhythm-- Continues to not have issues of tachyarrythmia or congestive failure (5) Acne: Is in good clinical control with benzoyl peroxide, clindamycin phosphate topically, ketoconazole topically and doxycycline 100 milligrams p.o. twice daily. (6) Hypothyroidism (acquired): levothyroxine sodium 50 mcg p.o. daily continues (7) Anxiety: risperidone and zonisamide. Has been having good control of his behavior outbursts (8) AICD (automatic cardioverter/defibrillator) present: interrogated and found to be functioning appropriately and with normal parameters (9) Pacemaker: As above Subjective this pt is about the same, sister at the bedside and updated, no significant changes Constitutional: + fatigue and + weakness Respiratory: no cough, no chest congestion and no dyspnea Cardiovascular: no chest pain and no dyspnea on exertion Gastrointestinal: no abdominal pain, no nausea and no vomiting Musculoskeletal: no joint pain and no swelling Integumentary: no rash and no lesions Physical Exam 2 Vital Signs (Past 24 Hours): Last Vital Signs Temp 36.7 C 07/14/18 12:06 Pulse 95 H 07/14/18 12:06 Resp 16 07/14/18 12:06 BP 103/68 07/14/18 12:06 Pulse Ox 96 07/14/18 12:06 Constitutional: well developed and average body habitus Eyes: no conjunctival abnormality and no scleral abnormality Neck: normal visual inspection and trachea midline Respiratory: normal respiratory effort; no respiratory distress Auscultation: lungs clear to auscultation bilaterally Cardiovascular: RRR, no murmur, no edema Gastrointestinal (Abdomen): normal bowel sounds, soft, nontender, no hepatosplenomegaly Musculoskeletal: no cyanosis or clubbing, extremities motor strength 5/5 _ (1) CHI (closed head injury) Encounter type: initial encounter Qualified Code(s): S09.90XA - Unspecified injury of head, initial encounter
[2018-07-15] MEDS: LEVOTHYROXINE SODIUM 50 MCG TABLET PO SCH (05:52)
[2018-07-15] MEDS: risperiDONE 3 MG TABLET PO SCH ×2 (08:42→21:33)
[2018-07-15] MEDS: ZONISAMIDE 100MG PO SCH ×2 (08:42→21:31)
[2018-07-15] MEDS: LORazepam 0.5 MG TAB PO SCH ×2 (08:42→21:31)
[2018-07-15] MEDS: levETIRAcetam 500 MG TAB PO SCH ×2 (08:42→21:35)
[2018-07-15] MEDS: DOXYCYCLINE HYCLATE 100 MG CAP PO SCH ×2 (08:43→21:34)
[2018-07-15] MEDS: lamoTRIgine 25 MG TAB PO SCH ×2 (08:44→21:32)
[2018-07-15] MEDS: BENZTROPINE MESYLATE 1 MG TAB PO SCH ×2 (08:44→21:33)
[2018-07-15] MEDS: lamoTRIgine 100 MG TAB PO SCH ×2 (08:44→21:34)
[2018-07-15] MEDS: TRIAMCINOLONE ACET 0.1% CR 15 GM TUBE TOP SCH ×2 (08:45→21:36)
--- NOTE | 2018-07-15 13:07 | Neurology Progress Note ---
Date of Service July 15, 2018 Assessment & Plan (1) Seizures: This is a 43-year-old male with intellectual disability and epilepsy. Seizure description is likely of focal onset seizures with secondary generalization and impaired mentation. Description of head shaking to the left sounds consistent with epileptic seizures (although sister said that he did this during the EEG and I did not see any seizure activity which brings into question whether some of his events are nonepileptic). long-term and sister also calling spells of drop attacks and falls seizures but have not clearly been established as epileptic seizures. Recommendations: Overall I am concerned that many of the spells which have been called seizures recently may be nonepileptic. Patient's ammonia level was found to be elevated this admission. This could be contributing to gait dysfunction and falls. Potentially zonisamide could be contributing to elevated ammonia. Recommend decreasing zonisamide to 1 capsule in the morning and continue 2 capsules in the evening (essentially decreasing medication from 400 mg daily to 300 mg daily). Continue other antiepileptic medications without change (Keppra was increased this admission to 2000 mg twice a day) Thank you for allowing me to participate in this patient's care. Please call/ page me if there is any questions or concerns. Follow-up in neurology clinic in [address] Taveras or our physician emergency veterinary assistant Millie. Subjective No seizures since admission. No active complaints. Sister reports that he did some of his typical head shaking to the left and I do not see any seizure activity on his EEG done a few days ago. I reviewed his EEG today along with special attention to the video. I did not see any seizure activity on his EEG done on the sixth nor did I see anything on video that was clinically concerning. Physical Exam 2 Vital Signs (Past 24 Hours): Last Vital Signs Temp 36.9 C 07/15/18 11:40 Pulse 79 07/15/18 11:40 Resp 16 07/15/18 11:40 BP 108/69 07/15/18 11:40 Pulse Ox 96 07/15/18 11:40 Physical Exam: Patient is pleasant and interactive. Intellectual disability. Speaks but cannot understand him. Moving all extremities equally.
--- NOTE | 2018-07-15 14:19 | Hospitalist Progress Note ---
Date of Service July 15, 2018 Assessment & Plan (1) Seizure disorder: Seizure disorder with recurrent seizures/anxiety and depression-- Continue benztropine, lamotrigine, levetiracetam, lorazepam, EEG without epileptiform activity and Dr. Kim has sent out antiepileptic levels, increased keppra no further seizures are noted CT of head negative on 07/07. Unable to perform MRI due to presence of pacer/AICD. Patient is marked improvement may be from the increase of his Keppra, asked his sister if there is any possibility he had his medications confused at the facility and she said no. We will continue to pursue alternative supportive care locations at this time (2) Recurrent seizures: As above (3) CHI (closed head injury): Noted in history, association with seizures (4) Tetralogy of Fallot: Tetralogy of Fallot/surgery as an infant/pacemaker and AICD present with paced rhythm-- Continues to not have issues of tachyarrythmia or congestive failure (5) Acne: Is in good clinical control with benzoyl peroxide, clindamycin phosphate topically, ketoconazole topically and doxycycline 100 milligrams p.o. twice daily. (6) Hypothyroidism (acquired): levothyroxine sodium 50 mcg p.o. daily continues (7) Anxiety: risperidone and zonisamide. Has been having good control of his behavior outbursts (8) AICD (automatic cardioverter/defibrillator) present: interrogated and found to be functioning appropriately and with normal parameters (9) Pacemaker: As above Subjective Patient remains without significant change has had good improvement in his physical therapy, sister at the bedside and updated Constitutional: + fatigue and + weakness Physical Exam 2 Vital Signs (Past 24 Hours): Last Vital Signs Temp 36.9 C 07/15/18 11:40 Pulse 79 07/15/18 11:40 Resp 16 07/15/18 11:40 BP 108/69 07/15/18 11:40 Pulse Ox 96 07/15/18 11:40 Constitutional: well developed and average body habitus Eyes: no conjunctival abnormality and no scleral abnormality Neck: normal visual inspection and trachea midline Respiratory: normal respiratory effort; no respiratory distress Auscultation: lungs clear to auscultation bilaterally Cardiovascular: RRR, no murmur, no edema Gastrointestinal (Abdomen): normal bowel sounds, soft, nontender, no hepatosplenomegaly Musculoskeletal: no cyanosis or clubbing, extremities motor strength 5/5 _ (1) CHI (closed head injury) Encounter type: initial encounter Qualified Code(s): S09.90XA - Unspecified injury of head, initial encounter
[2018-07-15 20:39] LABS: Lamictal(Lamotrigine) 17.2 mcg/mL (4.0-18.0); Zonisamide Zonegran 36.7 mcg/mL (10.0-40.0)
[2018-07-16] MEDS: LEVOTHYROXINE SODIUM 50 MCG TABLET PO SCH (05:49)
[2018-07-16] MEDS: lamoTRIgine 25 MG TAB PO SCH ×2 (08:09→20:46)
[2018-07-16] MEDS: BENZTROPINE MESYLATE 1 MG TAB PO SCH ×2 (08:09→20:45)
[2018-07-16] MEDS: levETIRAcetam 500 MG TAB PO SCH ×2 (08:09→20:43)
[2018-07-16] MEDS: lamoTRIgine 100 MG TAB PO SCH ×2 (08:09→20:44)
[2018-07-16] MEDS: DOXYCYCLINE HYCLATE 100 MG CAP PO SCH ×2 (08:09→20:47)
[2018-07-16] MEDS: risperiDONE 3 MG TABLET PO SCH ×2 (08:09→20:46)
[2018-07-16] MEDS: ZONISAMIDE 100MG PO SCH ×2 (08:09→20:48)
[2018-07-16] MEDS: TRIAMCINOLONE ACET 0.1% CR 15 GM TUBE TOP SCH ×2 (08:10→20:45)
[2018-07-16] MEDS: LORazepam 0.5 MG TAB PO SCH ×2 (08:10→20:43)
[2018-07-16 09:12] LABS: BUN Creatinine Ratio 6.6 (10-20); Calcium 8.1 mg/dl (8.5-10.1); Creatinine Clr Calc Pharmacy 70.3 ml/min; Est GFR (African American) 95.8; Est GFR (Non-African American) 82.7; Magnesium 1.9 mg/dl (1.8-2.4); Potassium 3.9 mmol/L (3.5-5.1)
--- NOTE | 2018-07-16 14:26 | Hospitalist Progress Note ---
Date of Service July 16, 2018 Assessment & Plan (1) Seizure disorder: (2) Recurrent seizures: (3) CHI (closed head injury): (4) Tetralogy of Fallot: (5) Acne: (6) Hypothyroidism (acquired): (7) Anxiety: (8) AICD (automatic cardioverter/defibrillator) present: (9) Pacemaker: 43-year-old white male admitted on July 10, 2018 because of seizure episodes Seizure disorder with recurrent seizures/anxiety and depression-- neuro feels many of the spells may be nonepileptic. per recs has decreasing zonisamide to 1 capsule in the morning and continue 2 capsules in the evening (essentially decreasing medication from 400 mg daily to 300 mg daily). Continue other antiepileptic medications without change (Keppra was increased this admission to 2000 mg twice a day) Follow-up in neurology clinic in [address] Taveras or our physician post production assistant Millie. CT of head negative on 07/07. Unable to perform MRI due to presence of pacer/AICD. Marked improvement may be from the increase of his Keppra, continue to pursue alternative supportive care locations at this time hx of closed head injury, stable hx of Tetralogy of Fallot: s/p /surgery as an infant/pacemaker and AICD present with paced rhythm, stable Acne: clinical control with benzoyl peroxide, clindamycin phosphate topically , ketoconazole topically and doxycycline 100 milligrams p.o. twice daily. Hypothyroidism, stable levothyroxine sodium 50 mcg p.o. daily continues Anxiety:cotn risperidone and zonisamide. Has been having good control of his behavior outbursts Per medical case manager patient need psych evaluation for the application of MA 51, which was ordered Increase activity, seizure precaution, DVT prophylaxis, talk to patient's sister about her care plan Subjective Generally doing good no complaint no seizure, eating voiding good, Have not out of bed and walk yet Review of Systems Constitutional: Positive weakness, or fatigue Respiratory: no cough, sputum, wheezing, or dyspnea on exertion Cardiac: No chest pain, No orthopnea, Abdomen: No pain, No nausea, No vomiting, No diarrhea, Musculoskeletal: No joint pain, No muscle pain, No swelling, : No dysuria, No urinary frequency, Neurologic: No paralysis, No weakness, No numbness/tingling, Psychiatric: No depression symptoms, No anhedonism, Heme: No abnormal bleeding/bruising, No clotting problems, Skin: No rash, No itch, No new/changing skin lesions Physical Exam 2 Vital Signs (Past 24 Hours): Last Vital Signs Temp 36.8 C 07/16/18 11:57 Pulse 122 H 07/16/18 11:57 Resp 16 07/16/18 11:57 BP 94/63 L 07/16/18 11:57 Pulse Ox 96 07/16/18 11:57 Physical Exam: General Appearance: Looks mild tired thin, however awake alert orientated , conversational, WD/WN, no apparent distress, Eyes: normal inspection, PERRL, EOMI, sclerae normal ENT: normal ENT inspection, hearing grossly normal, pharynx normal Neck: supple, no adenopathy, thyroid normal, no JVD, no carotid bruits, trachea midline Respiratory/Chest: The mid chest wall well-healing scar, chest non-tender, normal breath sounds, no respiratory distress, no accessory muscle use, no breath sounds, rales, wheezing Cardiovascular: regular rate, rhythm, no JVD, 4/6 systolic murmur Abdomen: normal bowel sounds, non tender, soft, no organomegaly, Extremities: normal range of motion, non-tender, normal inspection, no pedal edema, no calf tenderness, normal capillary refill , pelvis stable, joint has no limited range of motion, capillary refill is normal, no cyanosis clubbing Neurologic/Psychiatric: avionics repair technician II-XII nml as tested, no motor/sensory deficits, alert, normal mood/affect, oriented x 3 Skin: normal color, warm/dry, no rash Lymphatic: no adenopathy Results & Data Laboratory Results Laboratory Results - last 24 hr 07/11/18 07/16/18 07/16/18 18:10 08:35 08:35 Sodium 139 Potassium 3.9 Chloride 106 Carbon Dioxide 27 Anion Gap 6.0 BUN 7 Creatinine 1.09 Est Cr Clr Drug Dosing 70.3 Est GFR ( Amer) 95.8 Est GFR (Non-Af Amer) 82.7 BUN/Creatinine Ratio 6.6 L Glucose 121 H Calcium 8.1 L Magnesium 1.9 Ammonia 14.5 Zonisamide 36.7 Lamotrigine 17.2 _ (1) CHI (closed head injury) Encounter type: initial encounter Qualified Code(s): S09.90XA - Unspecified injury of head, initial encounter
--- NOTE | 2018-07-16 15:04 | Psychiatric Consultation ---
Date of Consultation July 16, 2018 Impression / Recommendations Impression 43-year-old man with intellectual disabilities, admitted to the hospital with seizure activity. Medications have been adjusted and they are recommended he go to a nursing facility in view of recent falls. We have been consulted to participate in the target process. At this time I find no information that would indicate he is unstable behaviorally or psychiatrically. He is not currently in psychiatric care but is on psychiatric medications from his PCP. He has no history of behavioral problems and will be able to return to his jail after receiving some physical rehab. He should be able to participate in treatment at a nursing facility without harm to himself or anyone else. Risk Factors Assessment Do You Have Access To A Gun?: No CPT Code 80359 Psych History Identifying Data 43 yo male admitted medically with seizure activity. We are consulted to participate in the TARGET process as it is recommended that he go to a snf briefly at discharge. Information is obtained from the patient and his sister, who is his POA. Chief Complaint TARGET evaluation History of Present Illness The patient is a 43-year-old male with ID who presented to the emergency department on July 07 with increased frequency of seizures[place] [facility] [place] and have adjusted his meds and it has been recommended that he go to a nursing facility post discharge as he had experienced several falls at home. This requires the TARGET process. His sister Leslie, who is his POA, is at the bedside and provides most of the info. He lives currently in a jail in [facility]. He is apparently well loved and his staff have been calling in frequently to see how he is doing. He has never had any behavioral problems and he considers the other people at the jail to be his family. His sister describes him as always having been suite, never had any trouble acting out. He is on psychiatric medicines that are prescribed by his primary care physician and he does not see a psychiatrist. He has been in good behavioral control here in the hospital, takes his medications as prescribed. He indicates that his mood has been up and down as indicated by turning his hand up and down. He indicates that he has had times of sadness but denies any suicidal thinking. He denies auditory or visual hallucinations. Past Psychiatric History Current Psychiatric Diagnosis: Intellectual disabilities Do You Have Access To A Gun?: No Allergies Allergy/AdvReac Type Severity Reaction Status Date / Time carbamazepine Allergy Unknown Verified 02/05/19 19:23 Home Medications Home Medications Medication Instructions Recorded Confirmed Type benzoyl peroxide [Acne Medication] 1 applic TOPICAL BID PRN 07/07/18 07/10/18 History benztropine 1 mg PO QAM 07/07/18 07/10/18 History benztropine 2 mg PO HS 07/07/18 07/10/18 History clindamycin phosphate 1 applic TOPICAL BID PRN 07/07/18 07/10/18 History doxycycline monohydrate 100 mg PO BID 07/07/18 07/10/18 History ketoconazole 1 applic/day TOPICAL DAILY PRN 07/07/18 07/10/18 History lamotrigine 50 mg PO BID 07/07/18 07/10/18 History lamotrigine 200 mg PO BID 07/07/18 07/10/18 History levetiracetam 1,000 mg PO BID 07/07/18 07/10/18 History levetiracetam [Keppra] 500 mg PO BID #30 tab 07/07/18 07/10/18 Rx levothyroxine 50 mcg PO DAILY 07/07/18 07/10/18 History lorazepam 0.5 mg PO BID 07/07/18 07/10/18 History risperidone 3 mg PO BID 07/07/18 07/10/18 History triamcinolone acetonide 1 applic TOPICAL BID 07/07/18 07/10/18 History zonisamide 200 mg PO BID 07/07/18 07/10/18 History acetaminophen [Tylenol Arthritis 650 mg PO Q6 PRN 07/10/18 07/10/18 History Pain] Substance Abuse History None Personal History Employment Status: Disabled Marital Status: Single Beliefs That Will Affect Care: None Patient History Medical History Seizures (Chronic) Family History Other No significant family history Social History Current Living Situation: Other Current Living Situation Comment: Lives in jail[facility]. Other Information That Helps Us Care for You: No Feels Safe at Home: Yes Safety Concerns: Feels Safe At This Time Smoking Status: Never smoker Do You Dip or Chew Tobacco: No Second Hand Exposure: No Tobacco Cessation Education Requested by Patient: No Hx Alcohol Use: No Hx Substance Use: No Beliefs That Will Affect Care: None Communication Ability: Impaired Physical Exam Psychiatric Orientation: alert and cooperative Apperance: appropriately dressed and appropriately groomed Eye Contact: good eye contact Motor Behavior: no abnormal motor movements Speech impediment Affect: euthymic affect Mood: no depressed mood and no anxious mood Thought Process: goal directed thought process Thought Content: reality based without delusions Suicidal Thoughts: denies suicidal thoughts Homicidal Thoughts: denies homicidal thoughts Hallucinations: no auditory hallucinations and no visual hallucinations Cognition: attention grossly intact Estimated Intelligence: + below average estimated intelligence Insight: + impaired insight Judgement: + impaired judgement Vital Signs (Past 24 Hours) Last Vital Signs Temp 36.8 C 07/16/18 11:57 Pulse 122 H 07/16/18 11:57 Resp 16 07/16/18 11:57 BP 94/63 L 07/16/18 11:57 Pulse Ox 96 07/16/18 11:57 Review of Systems All systems reviewed & are unremarkable except as noted in HPI & below Results & Data Medications Administered Benztropine Mesylate (Cogentin) 1 mg PO QAM ESTHER Stop: 08/10/18 08:59 Last Admin: 07/16/18 08:09 Dose: 1 mg Admin: 07/15/18 08:44 Dose: 1 mg Admin: 07/14/18 08:12 Dose: 1 mg Admin: 07/13/18 08:14 Dose: 1 mg Admin: 07/12/18 08:42 Dose: 1 mg Admin: 07/11/18 08:09 Dose: 1 mg Benztropine Mesylate (Cogentin) 2 mg PO HS ESTHER Stop: 08/09/18 21:38 Last Admin: 07/15/18 21:33 Dose: 2 mg Admin: 07/14/18 21:16 Dose: 2 mg Admin: 07/13/18 20:56 Dose: 2 mg Admin: 07/12/18 19:57 Dose: 2 mg Admin: 07/11/18 19:51 Dose: 2 mg Admin: 07/10/18 22:36 Dose: 2 mg Doxycycline Hyclate (Vibramycin) 100 mg PO BID ESTHER Stop: 07/20/18 21:38 Last Admin: 07/16/18 08:09 Dose: 100 mg Admin: 07/15/18 21:34 Dose: 100 mg Admin: 07/15/18 08:43 Dose: 100 mg Admin: 07/14/18 21:17 Dose: 100 mg Admin: 07/14/18 08:13 Dose: 100 mg Admin: 07/13/18 20:57 Dose: 100 mg Admin: 07/13/18 08:19 Dose: 100 mg Admin: 07/12/18 19:55 Dose: 100 mg Admin: 07/12/18 08:41 Dose: 100 mg Admin: 07/11/18 19:51 Dose: 100 mg Admin: 07/11/18 08:08 Dose: 100 mg Admin: 07/10/18 22:36 Dose: 100 mg Lamotrigine (Lamictal) 50 mg PO BID ESTHER Stop: 08/09/18 21:38 Last Admin: 07/16/18 08:09 Dose: 50 mg Admin: 07/15/18 21:32 Dose: 50 mg Admin: 07/15/18 08:44 Dose: 50 mg Admin: 07/14/18 21:19 Dose: 50 mg Admin: 07/14/18 08:12 Dose: 50 mg Admin: 07/13/18 20:57 Dose: 50 mg Admin: 07/13/18 08:12 Dose: 50 mg Admin: 07/12/18 19:55 Dose: 50 mg Admin: 07/12/18 10:19 Dose: 50 mg Admin: 07/11/18 20:26 Dose: 50 mg Admin: 07/11/18 08:11 Dose: 50 mg Admin: 07/10/18 22:32 Dose: 50 mg Lamotrigine (Lamictal) 200 mg PO BID ESTHER Stop: 08/09/18 21:38 Last Admin: 07/16/18 08:09 Dose: 200 mg Admin: 07/15/18 21:34 Dose: 200 mg Admin: 07/15/18 08:44 Dose: 200 mg Admin: 07/14/18 21:15 Dose: 200 mg Admin: 07/14/18 08:12 Dose: 200 mg Admin: 07/13/18 20:57 Dose: 200 mg Admin: 07/13/18 08:13 Dose: 200 mg Admin: 07/12/18 19:54 Dose: 200 mg Admin: 07/12/18 08:43 Dose: 200 mg Admin: 07/11/18 19:52 Dose: 200 mg Admin: 07/11/18 08:10 Dose: 200 mg Admin: 07/10/18 22:35 Dose: 200 mg Levetiracetam (Keppra) 2,000 mg PO BID ESTHER Stop: 08/10/18 20:59 Last Admin: 07/16/18 08:09 Dose: 2,000 mg Admin: 07/15/18 21:35 Dose: 2,000 mg Admin: 07/15/18 08:42 Dose: 2,000 mg Admin: 07/14/18 21:18 Dose: 2,000 mg Admin: 07/14/18 08:12 Dose: 2,000 mg Admin: 07/13/18 20:56 Dose: 2,000 mg Admin: 07/13/18 08:14 Dose: 2,000 mg Admin: 07/12/18 19:56 Dose: 2,000 mg Admin: 07/12/18 08:39 Dose: 2,000 mg Admin: 07/11/18 19:52 Dose: 2,000 mg Levothyroxine Sodium (Synthroid) 50 mcg PO DAILYBB ESTHER Stop: 08/10/18 06:29 Last Admin: 07/16/18 05:49 Dose: 50 mcg Admin: 07/15/18 05:52 Dose: 50 mcg Admin: 07/14/18 06:29 Dose: 50 mcg Admin: 07/13/18 06:42 Dose: 50 mcg Admin: 07/12/18 08:42 Dose: 50 mcg Admin: 07/11/18 06:09 Dose: 50 mcg Lorazepam (Ativan) 0.5 mg PO BID ESTHER Stop: 08/09/18 21:38 Last Admin: 07/16/18 08:10 Dose: 0.5 mg Admin: 07/15/18 21:31 Dose: 0.5 mg Admin: 07/15/18 08:42 Dose: 0.5 mg Admin: 07/14/18 21:14 Dose: 0.5 mg Admin: 07/14/18 08:15 Dose: 0.5 mg Admin: 07/13/18 20:56 Dose: 0.5 mg Admin: 07/13/18 08:10 Dose: 0.5 mg Admin: 07/12/18 19:54 Dose: 0.5 mg Admin: 07/12/18 08:39 Dose: 0.5 mg Admin: 07/11/18 20:26 Dose: 0.5 mg Admin: 07/11/18 08:06 Dose: 0.5 mg Admin: 07/10/18 22:31 Dose: 0.5 mg Miscellaneous (Order Awaiting Action) 1 ea N/A QS ESTHER Stop: 08/10/18 00:00 Last Admin: 07/16/18 07:58 Dose: Not Given Admin: 07/15/18 23:03 Dose: Not Given Admin: 07/15/18 15:47 Dose: Not Given Admin: 07/15/18 08:45 Dose: Not Given Admin: 07/15/18 00:11 Dose: Not Given Admin: 07/14/18 16:15 Dose: Not Given Admin: 07/14/18 08:15 Dose: Not Given Admin: 07/14/18 00:54 Dose: Not Given Admin: 07/13/18 15:43 Dose: Not Given Admin: 07/13/18 08:11 Dose: Not Given Admin: 07/12/18 23:50 Dose: Not Given Admin: 07/12/18 15:24 Dose: Not Given Admin: 07/12/18 07:20 Dose: Not Given Admin: 07/11/18 23:22 Dose: Not Given Admin: 07/11/18 15:32 Dose: Not Given Admin: 07/11/18 09:35 Dose: Not Given Admin: 07/10/18 23:40 Dose: Not Given Miscellaneous (Order Awaiting Action) 1 ea N/A QS ESTHER Stop: 08/10/18 00:00 Last Admin: 07/16/18 07:58 Dose: Not Given Admin: 07/15/18 23:03 Dose: Not Given Admin: 07/15/18 15:47 Dose: Not Given Admin: 07/15/18 08:45 Dose: Not Given Admin: 07/15/18 00:11 Dose: Not Given Admin: 07/14/18 16:15 Dose: Not Given Admin: 07/14/18 08:15 Dose: Not Given Admin: 07/14/18 00:54 Dose: Not Given Admin: 07/13/18 15:44 Dose: Not Given Admin: 07/13/18 08:11 Dose: Not Given Admin: 07/12/18 23:50 Dose: Not Given Admin: 07/12/18 15:24 Dose: Not Given Admin: 07/12/18 07:20 Dose: Not Given Admin: 07/11/18 23:22 Dose: Not Given Admin: 07/11/18 15:32 Dose: Not Given Admin: 07/11/18 09:35 Dose: Not Given Admin: 07/10/18 23:40 Dose: Not Given Miscellaneous (Order Awaiting Action) 1 ea N/A QS ESTHER Stop: 08/10/18 00:00 Last Admin: 07/16/18 07:59 Dose: Not Given Admin: 07/15/18 23:03 Dose: Not Given Admin: 07/15/18 15:47 Dose: Not Given Admin: 07/15/18 08:45 Dose: Not Given Admin: 07/15/18 00:11 Dose: Not Given Admin: 07/14/18 16:16 Dose: Not Given Admin: 07/14/18 08:15 Dose: Not Given Admin: 07/14/18 00:54 Dose: Not Given Admin: 07/13/18 15:44 Dose: Not Given Admin: 07/13/18 08:11 Dose: Not Given Admin: 07/12/18 23:50 Dose: Not Given Admin: 07/12/18 15:24 Dose: Not Given Admin: 07/12/18 07:20 Dose: Not Given Admin: 07/11/18 23:22 Dose: Not Given Admin: 07/11/18 15:32 Dose: Not Given Admin: 07/11/18 09:35 Dose: Not Given Admin: 07/10/18 23:40 Dose: Not Given Risperidone (Risperdal) 3 mg PO BID ESTHER Stop: 08/09/18 21:38 Last Admin: 07/16/18 08:09 Dose: 3 mg Admin: 07/15/18 21:33 Dose: 3 mg Admin: 07/15/18 08:42 Dose: 3 mg Admin: 07/14/18 21:18 Dose: 3 mg Admin: 07/14/18 08:12 Dose: 3 mg Admin: 07/13/18 20:57 Dose: 3 mg Admin: 07/13/18 08:19 Dose: 3 mg Admin: 07/12/18 19:56 Dose: 3 mg Admin: 07/12/18 08:44 Dose: 3 mg Admin: 07/11/18 19:52 Dose: 3 mg Admin: 07/11/18 08:09 Dose: 3 mg Admin: 07/10/18 22:36 Dose: 3 mg Triamcinolone Acetonide (Kenalog 0.1%) 1 appln TOP BID ESTHER Stop: 08/09/18 21:38 Last Admin: 07/16/18 08:10 Dose: 1 appln Admin: 07/15/18 21:36 Dose: 1 appln Admin: 07/15/18 08:45 Dose: 1 appln Admin: 07/14/18 21:19 Dose: 1 appln Admin: 07/14/18 08:13 Dose: 1 appln Admin: 07/13/18 20:58 Dose: 1 appln Admin: 07/13/18 08:21 Dose: 1 appln Admin: 07/12/18 19:55 Dose: 1 appln Admin: 07/12/18 08:41 Dose: 1 appln Admin: 07/11/18 20:29 Dose: Not Given Admin: 07/11/18 10:05 Dose: 1 appln Admin: 07/10/18 22:48 Dose: Not Given
[2018-07-17] MEDS: LEVOTHYROXINE SODIUM 50 MCG TABLET PO SCH (05:45)
[2018-07-17] MEDS: DOXYCYCLINE HYCLATE 100 MG CAP PO SCH ×2 (08:17→20:09)
[2018-07-17] MEDS: LORazepam 0.5 MG TAB PO SCH ×2 (08:17→20:06)
[2018-07-17] MEDS: lamoTRIgine 100 MG TAB PO SCH ×2 (08:17→20:10)
[2018-07-17] MEDS: lamoTRIgine 25 MG TAB PO SCH ×2 (08:17→20:08)
[2018-07-17] MEDS: risperiDONE 3 MG TABLET PO SCH ×2 (08:17→20:10)
[2018-07-17] MEDS: TRIAMCINOLONE ACET 0.1% CR 15 GM TUBE TOP SCH ×2 (08:17→20:09)
[2018-07-17] MEDS: levETIRAcetam 500 MG TAB PO SCH ×2 (08:17→20:07)
[2018-07-17] MEDS: BENZTROPINE MESYLATE 1 MG TAB PO SCH ×2 (08:17→20:07)
[2018-07-17] MEDS: ZONISAMIDE 100MG PO SCH ×2 (08:18→20:11)
--- NOTE | 2018-07-17 11:55 | Hospitalist Progress Note ---
Date of Service July 17, 2018 Assessment & Plan (1) Seizure disorder: (2) Recurrent seizures: (3) CHI (closed head injury): (4) Tetralogy of Fallot: (5) Acne: (6) Hypothyroidism (acquired): (7) Anxiety: (8) AICD (automatic cardioverter/defibrillator) present: (9) Pacemaker: 43-year-old white male admitted on July 10, 2018 because of seizure episodes Seizure disorder with recurrent seizures/anxiety and depression: neuro feels many of the spells may be nonepileptic. per recs: has decreasing zonisamide to 1 capsule in the morning and continue 2 capsules in the evening (essentially decreasing medication from 400 mg daily to 300 mg daily) Continue other antiepileptic medications without change Follow-up in neurology clinic in [address] Taveras or our physician assistant elementary teacher Millie. CT of head negative on 07/07. Unable to perform MRI due to presence of pacer/AICD. Marked improvement may be from the increase of his Keppra, patient has been continue to be stable hx of closed head injury, stable hx of Tetralogy of Fallot: s/p /surgery as an /pacemaker and AICD present with paced rhythm, stable Acne: clinical control with benzoyl peroxide, clindamycin phosphate topically , ketoconazole topically and doxycycline 100 milligrams p.o. twice daily. Hypothyroidism, stable levothyroxine sodium 50 mcg p.o. daily continues Anxiety:cotn risperidone and zonisamide. Has been having good control of his behavior outbursts Psych cleared him for MA 51 Increase activity, seizure precaution, DVT prophylaxis, talkd to patient's sister about her care plan Patient medically ready to discharge, Discontinue cardiac monitor technician, increase activity Subjective Generally doing good. no complaint no seizure, eating voiding good, Review of Systems Constitutional: Positive weakness, or fatigue Respiratory: no cough, sputum, wheezing, or dyspnea on exertion Cardiac: No chest pain, No orthopnea, Abdomen: No pain, No nausea, No vomiting, No diarrhea, Musculoskeletal: No joint pain, No muscle pain, No swelling, : No dysuria, No urinary frequency, Neurologic: No paralysis, No weakness, No numbness/tingling, Psychiatric: No depression symptoms, No anhedonism, Heme: No abnormal bleeding/bruising, No clotting problems, Skin: No rash, No itch, No new/changing skin lesions Constitutional: + fatigue and + weakness Physical Exam 2 Vital Signs (Past 24 Hours): Last Vital Signs Temp 36.3 C L 07/17/18 11:34 Pulse 100 H 07/17/18 11:34 Resp 18 07/17/18 11:34 BP 107/67 07/17/18 11:34 Pulse Ox 96 07/17/18 11:34 Physical Exam: General Appearance: Looks mild tired thin,conversational, WD/WN, no apparent distress, Eyes: normal inspection, PERRL, EOMI, sclerae normal ENT: normal ENT inspection, hearing grossly normal, pharynx normal Neck: supple, no adenopathy, thyroid normal, no JVD, no carotid bruits, trachea midline Respiratory/Chest: The mid chest wall well-healing scar, chest non-tender, normal breath sounds, no breath sounds, rales, wheezing Cardiovascular: regular rate, rhythm, no JVD, 4/6 systolic murmur Abdomen: normal bowel sounds, non tender, soft, no organomegaly, Extremities: normal range of motion, non-tender, normal inspection, no pedal edema, no calf tenderness, normal capillary refill , pelvis stable, no cyanosis clubbing Neurologic/Psychiatric: family physician II-XII nml as tested, no motor/sensory deficits, alert, normal mood/affect, Skin: normal color, warm/dry, no rash Lymphatic: no adenopathy _ (1) CHI (closed head injury) Encounter type: initial encounter Qualified Code(s): S09.90XA - Unspecified injury of head, initial encounter
[2018-07-18] MEDS: LEVOTHYROXINE SODIUM 50 MCG TABLET PO SCH (05:35)
[2018-07-18] MEDS: TRIAMCINOLONE ACET 0.1% CR 15 GM TUBE TOP SCH ×2 (08:02→20:43)
[2018-07-18] MEDS: levETIRAcetam 500 MG TAB PO SCH ×2 (08:59→20:40)
[2018-07-18] MEDS: lamoTRIgine 25 MG TAB PO SCH ×2 (08:59→20:41)
[2018-07-18] MEDS: risperiDONE 3 MG TABLET PO SCH ×2 (09:00→20:41)
[2018-07-18] MEDS: BENZTROPINE MESYLATE 1 MG TAB PO SCH ×2 (09:00→20:40)
[2018-07-18] MEDS: DOXYCYCLINE HYCLATE 100 MG CAP PO SCH ×2 (09:00→20:42)
[2018-07-18] MEDS: lamoTRIgine 100 MG TAB PO SCH ×2 (09:00→20:41)
[2018-07-18] MEDS: ZONISAMIDE 100MG PO SCH ×2 (09:01→20:43)
[2018-07-18] MEDS: LORazepam 0.5 MG TAB PO SCH ×2 (09:07→20:39)
--- NOTE | 2018-07-18 14:23 | Hospitalist Progress Note ---
Date of Service July 18, 2018 Assessment & Plan (1) Seizure disorder: (2) Recurrent seizures: (3) CHI (closed head injury): (4) Tetralogy of Fallot: (5) Acne: (6) Hypothyroidism (acquired): (7) Anxiety: (8) AICD (automatic cardioverter/defibrillator) present: (9) Pacemaker: 43-year-old white male admitted on July 10, 2018 because of seizure episodes, has been stable, Seizure disorder with recurrent seizures upon admission, no any new seizure activities neuro feels many of the spells may be nonepileptic. per recs: has decreasing zonisamide to 1 capsule in the morning and continue 2 capsules in the evening (essentially decreasing medication from 400 mg daily to 300 mg daily) Continue other antiepileptic medications without change Follow-up in neurology clinic in [address]averas [address] of head negative on 07/07. Unable to perform MRI due to presence of pacer/AICD. hx of closed head injury, stable hx of Tetralogy of Fallot: s/p /surgery as an infant/pacemaker and AICD present with paced rhythm, stable s/p AICD Acne: clinical control with benzoyl peroxide, clindamycin phosphate topically , ketoconazole topically and doxycycline 100 milligrams p.o. twice daily. Hypothyroidism, stable levothyroxine sodium 50 mcg p.o. daily continues Anxiety:cotn risperidone and zonisamide. Has been having good control of his behavior outbursts Psych cleared him for MA 51 Increase activity, seizure precaution, DVT prophylaxis, talkd to patient's sister about her care plan Patient medically ready to discharge, Discontinue environmental monitoring specialist, increase activity Subjective Generally doing the same, good. no complaint, no seizure, eating voiding good, Review of Systems Constitutional: Positive mild weakness, or fatigue Respiratory: no cough, sputum, wheezing, or dyspnea on exertion Cardiac: No chest pain, No orthopnea, Abdomen: No pain, No nausea, No vomiting, No diarrhea, Musculoskeletal: No joint pain, No muscle pain, No swelling, : No dysuria, No urinary frequency, Neurologic: No paralysis, No weakness, No numbness/tingling, Psychiatric: No depression symptoms, No anhedonism, Heme: No abnormal bleeding/bruising, No clotting problems, Skin: No rash, No itch, No new/changing skin lesions Constitutional: + fatigue and + weakness Physical Exam 2 Vital Signs (Past 24 Hours): Last Vital Signs Temp 36.8 C 07/18/18 07:09 Pulse 97 H 07/18/18 07:09 Resp 18 07/18/18 07:09 BP 105/67 07/18/18 07:09 Pulse Ox 97 07/18/18 07:09 Physical Exam: General Appearance: Looks mild tired thin,conversational, WD/WN , no apparent distress, Eyes: normal inspection, PERRL, EOMI, sclerae normal ENT: normal ENT inspection, hearing grossly normal, pharynx normal Neck: supple, no adenopathy, thyroid normal, no JVD, no carotid bruits, trachea midline Respiratory/Chest: The mid chest wall well-healing scar, chest non-tender, normal breath sounds, no breath sounds, rales, wheezing Cardiovascular: regular rate, rhythm, no JVD, 4/6 systolic murmur Abdomen: normal bowel sounds, non tender, soft, no organomegaly, Extremities: normal range of motion, non-tender, normal inspection, no pedal edema, no calf tenderness, normal capillary refill , pelvis stable, no cyanosis clubbing Neurologic/Psychiatric: imaging aide II-XII nml as tested, no motor/sensory deficits, alert, normal mood/affect, Skin: normal color, warm/dry, no rash Lymphatic: no adenopathy _ (1) CHI (closed head injury) Encounter type: initial encounter Qualified Code(s): S09.90XA - Unspecified injury of head, initial encounter
[2018-07-19] MEDS: LEVOTHYROXINE SODIUM 50 MCG TABLET PO SCH (05:49)
[2018-07-19] MEDS: DOXYCYCLINE HYCLATE 100 MG CAP PO SCH (07:48)
[2018-07-19] MEDS: lamoTRIgine 25 MG TAB PO SCH (07:48)
[2018-07-19] MEDS: risperiDONE 3 MG TABLET PO SCH (07:48)
[2018-07-19] MEDS: lamoTRIgine 100 MG TAB PO SCH (07:48)
[2018-07-19] MEDS: LORazepam 0.5 MG TAB PO SCH (07:48)
[2018-07-19] MEDS: BENZTROPINE MESYLATE 1 MG TAB PO SCH (07:49)
[2018-07-19] MEDS: TRIAMCINOLONE ACET 0.1% CR 15 GM TUBE TOP SCH (07:49)
[2018-07-19] MEDS: ZONISAMIDE 100MG PO SCH (07:50)
[2018-07-19] MEDS: levETIRAcetam 500 MG TAB PO SCH (07:51)
--- NOTE | 2018-07-19 12:13 | Discharge Summary ---
Date of Service July 19, 2018 Admission HPI Per Admitting Provider The patient is a 43-year-old male with ID who presented to the emergency department on July 07 with increased frequency of seizures. [facility] neurology has been consulted and have adjusted his meds and it has been recommended that he go to a nursing facility post discharge as he had experienced several falls at home. This requires the [facility] process. His sister Leslie, who is his POA, is at the bedside and provides most of the info. He lives currently in a detention in [facility]. He is apparently well loved and his staff have been calling in frequently to see how he is doing. He has never had any behavioral problems and he considers the other people at the detention to be his family. His sister describes him as always having been suite, never had any trouble acting out. He is on psychiatric medicines that are prescribed by his primary care physician and he does not see a psychiatrist. He has been in good behavioral control here in the hospital, takes his medications as prescribed. He indicates that his mood has been up and down as indicated by turning his hand up and down. He indicates that he has had times of sadness but denies any suicidal thinking. He denies auditory or visual hallucinations. Principal Diagnosis 35 Discharge Data Allergies Allergy/AdvReac Type Severity Reaction Status Date / Time carbamazepine Allergy Unknown Verified 07/10/18 19:23 Consultations 07/10/18 21:39 Consult Case Management - Discharge Planning Routine Consult Neurology Routine 07/16/18 11:20 Consult Psychiatry Routine Hospital Course (1) Seizure disorder: (2) Recurrent seizures: (3) CHI (closed head injury): (4) Tetralogy of Fallot: (5) Acne: (6) Hypothyroidism (acquired): (7) Anxiety: (8) AICD (automatic cardioverter/defibrillator) present: (9) Pacemaker: 43-year-old white male admitted on July 10, 2018 because of seizure episodes, has been stable, Seizure disorder with recurrent seizures upon admission, no any new seizure activities neuro feels many of the spells may be nonepileptic. per recs: has decreasing zonisamide to 1 capsule in the morning and continue 2 capsules in the evening (essentially decreasing medication from 400 mg daily to 300 mg daily) Continue other antiepileptic medications without change Follow-up in neurology clinic in [address]aver[address] of head negative on 07/07. Unable to perform MRI due to presence of pacer/AICD. hx of closed head injury, stable hx of Tetralogy of Fallot: s/p /surgery as an /pacemaker and AICD present with paced rhythm, stable s/p AICD Acne: clinical control with benzoyl peroxide, clindamycin phosphate topically , ketoconazole topically and doxycycline 100 milligrams p.o. twice daily. Hypothyroidism, stable levothyroxine sodium 50 mcg p.o. daily continues Anxiety:cotn risperidone and zonisamide. Has been having good control of his behavior outbursts Psych cleared him for MA 51 Increase activity, seizure precaution, DVT prophylaxis, talkd to patient's sister about her care plan Patient medically ready to discharge, Today I was notified the patient has bed available in [facility], told to the patient and sister, answered all questions, Subjective upon discharge today, generally doing the same, good. no complaint, no seizure, eating voiding good, Review of Systems upon discharge today Constitutional: Positive mild weakness, or fatigue Respiratory: no cough, sputum, wheezing, or dyspnea on exertion Cardiac: No chest pain, No orthopnea, Abdomen: No pain, No nausea, No vomiting, No diarrhea, Musculoskeletal: No joint pain, No muscle pain, No swelling, : No dysuria, No urinary frequency, Neurologic: No paralysis, No weakness, No numbness/tingling, Psychiatric: No depression symptoms, No anhedonism, Heme: No abnormal bleeding/bruising, No clotting problems, Skin: No rash, No itch, No new/changing skin lesions Physical Exam upon discharge today General Appearance: Interactive,not tired , thin,conversational, WD/WN, no apparent distress, Eyes: normal inspection, PERRL, EOMI, sclerae normal ENT: normal ENT inspection, hearing grossly normal, pharynx normal Neck: supple, no adenopathy, thyroid normal, no JVD, no carotid bruits, trachea midline Respiratory/Chest: The mid chest wall well-healing scar, chest non-tender, normal breath sounds, no breath sounds, rales, wheezing Cardiovascular: regular rate, rhythm, no JVD, 4/6 systolic murmur which is not new, Abdomen: normal bowel sounds, non tender, soft, no organomegaly, Extremities: normal range of motion, non-tender, normal inspection, no pedal edema, no calf tenderness, normal capillary refill , pelvis stable, no cyanosis clubbing Neurologic/Psychiatric: launchman II-XII nml as tested, no motor/sensory deficits, alert, normal mood/affect, Skin: normal color, warm/dry, no rash Lymphatic: no adenopathy Lab data upon discharge: Total Time Total Time Spent Total Time Spent (In Minutes): 35 Discharge Plan Discharge Items Patient Disposition: Transfer Residential Fac Reason For Visit: INCREASED SEIZURE ACTIVITY Discharge Diagnosis: recurrent seizures upon admission, Condition: Fair Discharge Goals: Decrease discomfort Activity: Resume your previous activity Non-emergency contact: Primary Care Provider and Neurologist Call non-emergency contact if: you have any medication questions Diet: Regular Addtl Provider Instructions: you have Seizure disorder with recurrent seizures upon admission, no any new seizure activities your medicine zonisamide t has changed to 1 capsule in the morning and continue 2 capsules in the evening (essentially decreasing medication from 400 mg daily to 300 mg daily) Continue other antiepileptic medications without change you need to Follow-up in neurology clinic in [address] Nitin Crawford activity, seizure precaution, you need to follow up with your primary care physician in 1 week, - take medication as instructed, never overdose or any misuse, or take with alcohol, because misuse of medicine may cause organ damage or , call me , or your primary care physician if have questions of discharge medicaitons. - call your primary care physician, or go to local emergency room if has any fever/chill, chest pain, shortness of breathing, nausea/vomiting/abdominal pain , facial droop/slurry speech/local weakness, or if has any questions. - fall precaution - diet as instructed - you need to follow up with your subspecialist, such as Dr. Taveras Prescriptions: New zonisamide [Zonegran] 100 mg Capsule 2 dose PO QPM 30 Days Qty: 60 RF: 0 zonisamide [Zonegran] 100 mg Capsule 1 dose PO QAM 30 Days Qty: 30 RF: 0 Continue lamotrigine 200 mg tablet 200 mg PO BID RF: 0 ketoconazole 2 % shampoo 1 applic/day topical DAILY PRN (Reason: Acne) RF: 0 benzoyl peroxide [Acne Medication] 5 % Gel 1 applic TOPICAL BID PRN (Reason: Acne) RF: 0 risperidone 3 mg tablet 3 mg PO BID RF: 0 triamcinolone acetonide 0.1 % cream 1 applic topical BID RF: 0 lamotrigine 25 mg tablet 50 mg PO BID RF: 0 lorazepam 0.5 mg tablet 0.5 mg PO BID RF: 0 doxycycline monohydrate 100 mg capsule 100 mg PO BID RF: 0 levothyroxine 50 mcg tablet 50 mcg PO DAILY RF: 0 benztropine 1 mg tablet 1 mg PO QAM RF: 0 benztropine 1 mg tablet 2 mg PO HS RF: 0 clindamycin phosphate 1 % lotion 1 applic topical BID PRN (Reason: Acne) RF: 0 levetiracetam 1,000 mg tablet 1,000 mg PO BID RF: 0 levetiracetam [Keppra] 500 mg tablet 500 mg PO BID Qty: 30 RF: 0 acetaminophen [Tylenol Arthritis Pain] 650 mg Tablet Extended Release 650 mg PO Q6 PRN (Reason: Pain) RF: 0 Discontinued zonisamide 100 mg capsule 200 mg PO BID RF: 0 Stand-Alone Forms: [facility] Discharge Orders: Discharge Order (Routine); Ordered 07/19/18 Ordered By: Nik Mims Skilled Items Patient informed of condition?: Yes DNR: No Discharge Level of Care: Skilled Communicable Disease: No Discharge Prognosis: Stable Admission Data Admit Date/Time: 07/10/18 19:38 Attending Provider: Nik Mims Admit Provider: Sj aNva Primary Care Provider: Tere Hyatt Other Providers: Sj Nava ; Vahid New ; Mor Taveras III ; Martha Pruett Service: Medical Other Interventions: Discharge Summary Assessment (RN) Last Done: 07/19/18 12:05
== END 2018-07-19 12:37 | DRG 101 ==
LOC: ED 17:16 → 2N 19:38 → SUATTDRO 19:38 → 2N 21:39